=== PATIENT | female | born 1995 | race Caucasian/White ===

== ENCOUNTER 2023-08-17 17:44 | Emergency (ER) | payer BC, SELFPAY ==
[2023-08-17 17:49] VITALS: BP 113/80
[2023-08-17 18:11] LABS: % Basophils 0.1 % (0-2); % Eosinophils 0.6 % (0-6); % Immature Granulocytes 0.3 % (0-0.5); % Lymphocytes 5.6 % (20.5-51.1); % Monocytes 3.3 % (1.7-9.3); % Neutrophils 90.1 % (42.2-75.2); Absolute Eosinophils 0.1 10^3/uL (0-0.7); Absolute Lymphocytes 0.5 10^3/uL (1.2-3.4); Absolute Monocytes 0.3 10^3/uL (0.1-0.6); Absolute Neutrophils 8.4 10^3/uL (1.4-6.5); Hematocrit 40.9 % (37.0-47.0); Mean Corp Hgb Conc. 34.2 g/dL (33.0-37.0); Mean Corpuscular Hgb 28.8 pg (27.0-31.0); Mean Corpuscular Volume 84.2 fL (81.0-99.0); Nucleated Red Blood Cells % 0 %; Platelet Count 193 10^3/uL (130-400); Red Blood Cell Count 4.86 10^6/uL (4.20-5.40); Red Cell Dist. Width 13.3 % (11.5-14.5); White Blood Cell Count 9.3 10^3/uL (4.8-10.8)
[2023-08-17 18:24] LABS: ALT (SGPT) 21 U/L (0-35); AST (SGOT) 22 U/L (14-36); Albumin 4.5 g/dl (3.5-5.0); Alkaline Phosphatase 90 U/L (38-126); Blood Urea Nitrogen 10 mg/dl (7-17); Calcium 9.5 mg/dl (8.4-10.2); Carbon Dioxide 24 mmol/L (22-30); Chloride 103 mmol/L (98-107); Glucose 97 mg/dl (70-99); Potassium 4.1 mmol/L (3.5-5.1); Sodium 135 mmol/L (135-145); Total Bilirubin 0.9 mg/dl (0.2-1.3); Total Protein 7.4 g/dl (6.3-8.2); eGFR > 60.00
[2023-08-17 18:46] LABS: Lipase 98 U/L (23-300)
[2023-08-17] MEDS: NSS 1000 IV (19:17)
[2023-08-17] MEDS: ZOFRAN 4 MG IV (19:17)
[2023-08-17 20:18] LABS: Urine Albumin Trace (Neg - Trace); Urine Bilirubin 1+ (Negative); Urine Character Clear (Clear); Urine Color Yellow; Urine Glucose Negative (Negative); Urine Ketone 3+ (Negative); Urine Leukocyte Negative (Negative); Urine Nitrite Negative (Negative); Urine Occult Blood 2+ (Negative); Urine Urobilinogen 2+ (Neg - 1+)
[2023-08-17 20:34] LABS: Urine Bacteria Few (Negative); Urine Mucus Few; Urine Squamous Cell >30 /LPF (Few)
[2023-08-17 20:35] LABS: Urine Red Blood Cell 26-30 /HPF (0-2); Urine White Cell 0-2 /HPF (0-5)
--- NOTE | 2023-08-17 23:24 | ED.GENMED ---
History of Present Illness
General
Chief Complaint: Abdominal Symptoms
Source: patient
Exam Limitations: none
Time Seen by Provider: 08/17/23 18:21
Nursing documentation reviewed up to this point in time: agreed with
Travel History
Have you had any contact with someone who has COVID-19?: No
Do you have any symptoms of coronavirus? Fever > 100 degrees, chills, cough, shortness of breath, sore throat, loss of taste or smell, muscle aches, or headache?: No
History of Present Illness
History of Present Illness:
Patient to ED with complaint of vomiting since 6AM. Unable to keep anything down. Denies fever/chills. Reports abdominal bloating. State she was taking ozempic for weight control. She switched to Wegovy and had her first injection on Friday.
She is unsure if this is related.
Past History
Past History
ED Past Medical History: Asthma and Other (Environmental allergies)
ED Past Surgical History: Gynecological (Tubal ligation) and Other (Endoscopy, wisdom teeth extraction)
Social History
Tobacco: Non-smoker
Alcohol: None
Drug: None
Personal:
Living: with family
Employment: Employed
Family History
Family History: Other (Noncontributory)
Review of Systems
Review of Systems
Allergies reviewed?: Yes
All Other Systems: ROS reviewed and negative except as documented in HPI and ROS
Constitutional: Reports no symptoms
EENT: Reports no symptoms
Respiratory: Reports no symptoms
Cardiac: Reports no symptoms
ABD/GI: Reports abdominal pain, nausea, vomiting and diarrhea
: Reports no symptoms
Musculoskeletal: Reports no symptoms
Skin: Reports no symptoms
Neurological: Reports no symptoms
Hematologic/Lymphatic: Reports no symptoms
Psychiatric: Reports no symptoms
Phy Exam
General Physical Exam
General Presentation: well appearing and mild distress
General age: appears stated age
General Skin: warm and dry
General Habitus: normal
General Mental: alert
Pulmonary Exam
Pulmonary Exam: no respiratory distress and chest non tender
Gastrointestinal Exam
Gastrointestinal Exam: normal bowel sounds, soft, no organomegaly, non distended and no cva tenderness
Palpation: generalized: Mild tenderness
Musculoskeletal Exam
Musculoskeletal Exam: full ROM
Skin Exam
Skin Exam: normal color, warm/dry and no rash
Psychiatric Exam
Psychiatric Exam: normal mood/affect
Course
Orders/Labs/Results
Orders:
Orders
08/17/23 17:59
Complete Blood Count/With Diff Urgent
Comprehensive Metabolic Panel Urgent
Lipase Urgent
08/17/23 18:59
STOOL [C difficile Antigen & Toxins] Urgent
MARGAUX Source: Feces/Stool
Specimen Description:
Date Specimen was Collected: 08/17/23
Time Specimen was Collected: 19:15
0.9% Sodium Chloride 1000 ml [Nss] 1,000 ml IV BOLUS
Ondansetron Injectable [Zofran] 4 mg IV NOW STA
08/17/23 20:11
Urinalysis Reflex To Culture Urgent
Date Specimen was Collected: 08/17/23
Time Specimen was Collected: 17:53
Urine Microscopic Reflex Cult Urgent
Abnormal Lab Results
08/17/23 08/17/23
17:59 20:11
MPV 11.0 H fL
(7.4-10.4)
Absolute Neuts (auto) 8.4 H 10^3/uL
(1.4-6.5)
Absolute Lymphs (auto) 0.5 L 10^3/uL
(1.2-3.4)
Neutrophils % 90.1 H %
(42.2-75.2)
Lymphocytes % 5.6 L %
(20.5-51.1)
Urine Ketones 3+ A
(Negative)
Ur Occult Blood Reflex 2+ A
(Negative)
Urine Bilirubin 1+ A
(Negative)
Urine Urobilinogen 2+ A
(Neg - 1+)
Urine RBC 26-30 A /HPF
(0-2)
Urine Bacteria (Reflex) Few A
(Negative)
08/17/23 17:59
08/17/23 17:59
Vital Signs
Initial and Last Documented VS:
Initial Vital Signs
Temp Pulse Resp BP Pulse Ox
98.3 F 113 20 113/80 98
08/17/23 17:49 08/17/23 17:49 08/17/23 17:49 08/17/23 17:49 08/17/23 17:49
Last Documented Vital Signs
Temp Pulse Resp BP Pulse Ox
98.3 F 113 20 113/80 98
08/17/23 17:49 08/17/23 17:49 08/17/23 17:49 08/17/23 17:49 08/17/23 17:49
*Critical Care Note
Total Time (30-74mins, 75-104mins- exclusive of procedures): Not Applicable
Update Note
Update Note:
Improved with IVF and zofran. SHe would like to go home. Labs reviewed with her. She will be given rx for zofran prn. Recommend clear liquids for 24 hours advance as tolerated. Given instructions on s/s to return to ED and she is agreeable to
plan
ED Attending Note
-
Portions of this chart may have been created with voice recognition software.� Occasional wrong word or��sound alike� substitutions may have occurred due to the inherent limitations of voice recognition software.
Discharge Plan
Departure
Patient Disposition: Home (Routine Discharge)
Date of Disposition: 08/17/23
Time of Disposition: 21:08
Patient with high blood pressure during this ER visit?: No
Condition: Good
Covid-19: Not Applicable
Discharge Problem:
Vomiting and diarrhea
Instructions: Diarrhea in adolescents and adults, Clear Liquid Diet, Nausea and Vomiting, Adult (DC)
Prescriptions:
New
ondansetron 4 mg tablet,disintegrating
4 mg PO Q8H PRN (Reason: nausea and vomiting) 3 Days Qty: 10 0RF
No Action
ibuprofen 200 MG tablet
200 mg PO Q4HPRN Qty: 0 0RF
Rx Instructions:
1-2 200mg tabs every 4 hrs as needed. 3 200 mg tabs every -8 hrs as needed.
albuterol sulfate 2.5 MG/3 ML solution for nebulization
2.5 mg inhalation R Q4HPRN PRN (Reason: cough, shortness of breath) Qty: 30 0RF
Patient Comments:
Months ago per patient.
multivitamin 1 EACH tablet
1 tab PO DAILY
spironolactone [Aldactone] 100 MG tablet
100 mg PO DAILY
sertraline 100 MG tablet
100 mg PO DAILY
budesonide-formoterol [Symbicort] 1 PUFF HFA aerosol inhaler
1 puff inhalation DAILY
fexofenadine [Antonia] 60 MG tablet
280 mg PO DAILY
omeprazole [Prilosec] 10 MG capsule,delayed release(DR/EC)
20 mg PO DAILY
acetaminophen 325 MG tablet
650 mg PO Q4HPRN PRN (Reason: mild pain) 0RF
oxycodone 5 MG tablet
5 mg PO Q4HPRN PRN (Reason: moderate pain) Qty: 12 0RF
Referrals:
Anna Yoo MD [Family Provider] - Tomorrow
Activity Restrictions/Additional Instructions:
Return to the emergency department immediately for any changes in/worsening of your symptoms.
Interventions
Interventions:
*General Assessment Last Done: 08/17/23 17:49
*Neglect/Abuse Screening Last Done: 08/17/23 18:39
ED- Fall Risk Assessment Last Done: 08/17/23 18:39
*Nursing Disposition Last Done: 08/17/23 21:32
SY-Llfmtj-Zfeubbonwu Assessment Last Done: 08/17/23 18:39
Discharge Date and Time
Discharge Date/Time: 08/17/23 21:32
Print Language: IRISH
== END 2023-08-17 21:32 | disposition home or self-care (01) ==
LOC: EMR 17:44
PROVIDERS: EMERGENCY PHYSICIAN Emergency Medicine; FAMILY PHYSICIAN Internal Medicine
DX: R19.7 Diarrhea, unspecified (principal); R11.10 Vomiting, unspecified; R10.9 Unspecified abdominal pain; R14.0 Abdominal distension (gaseous); J45.909 Unspecified asthma, uncomplicated; Z88.1 Allergy status to other antibiotic agents; Z91.040 Latex allergy status; Z88.0 Allergy status to penicillin; Z91.018 Allergy to other foods
CPT/HCPCS: 99284; 96374; 96361; 80053; 81003; 81015; 83690; 85025

== ENCOUNTER 2023-09-14 02:17 | Emergency (ER) | payer BC, SELFPAY ==
[2023-09-14 02:19] VITALS: BP 118/76
--- NOTE | 2023-09-14 02:38 | EDRN ---
ear. Pt feels like she is swollen. Pt has had steroids and z pack and her L ear is worst. Pt can not sleep.
--- NOTE | 2023-09-14 02:50 | ED.GENMED ---
History of Present Illness
General
Chief Complaint: Throat Problem
Source: patient
Exam Limitations: none
Time Seen by Provider: 09/14/23 02:37
Nursing documentation reviewed up to this point in time: agreed with
Travel History
Have you had any contact with someone who has COVID-19?: No
Do you have any symptoms of coronavirus? Fever > 100 degrees, chills, cough, shortness of breath, sore throat, loss of taste or smell, muscle aches, or headache?: No
History of Present Illness
History of Present Illness:
This is a 27-year-old female who has history of mild intermittent asthma, history of seasonal allergies chronically maintained on Antonia and as needed steroid nasal spray. She complains of 1 week history of initially left posterior sore throat and
was evaluated at urgent care 1 week ago where she reports negative COVID, flu and rapid strep testing. She was diagnosed with left otitis media and placed on a Z-Preet as well as Medrol Dosepak, both of which completed yesterday.
She continues with moderate left ear pain that radiates to the left side of her throat, worse when laying down. She does admit to mild nasal congestion but has not had a headache, no fever nor chills, no rhinorrhea, no cough, no chest pain or
shortness of breath. She has had no drainage from her left ear.
Past History
Past History
ED Past Medical History: Asthma and Other (Environmental allergies)
ED Past Surgical History: Gynecological (Tubal ligation/Hysterectomy-bilateral salpingectomy (12/2020)) and Other (Endoscopy, wisdom teeth extraction)
Social History
Tobacco: Non-smoker
Alcohol: None
Drug: None
Personal:
Living: with family
Employment: Employed
Family History
Family History: Other (Noncontributory)
Phy Exam
Physical Exam
Physical Exam:
GENERAL: 27-year-old female appears her stated age, bright and alert, pleasant, appears in no acute distress. Afebrile. Normotensive.
EYE: anicteric
NECK: Supple, nontender, no meningismus, no significant adenopathy.
ENT: posterior pharynx is without injection nor edema nor exudate, there is scant pearly postnasal drip noted. Oral mucosa is moist. Left TM without injection nor redness but moderate serous fluid behind the TM. Canal is clear. Right TM and
canal is clear. Nares have moderately boggy pale blue turbinates without rhinorrhea. No sinus/facial tenderness to palpation.
CARDIAC: Regular rate and rhythm. no murmur.
LUNGS: Clear breath sounds bilaterally, no acute respiratory distress, no wheezes/rales/rhonchi
ABDOMEN: Soft, nondistended, without focal tenderness
NEUROLOGICAL: Alert and oriented x3, no focal neuro deficits. Gait is kumar and steady.
SKIN: Warm and dry, normal color, skin intact. No rash.
MUSCULOSKELETAL: No C/C/E. peripheral pulses are full and equal b/l. No palpable tenderness.
PSYCH: Normal and appropriate interaction.
Course
Orders/Labs/Results
Orders:
Orders
09/14/23 02:49
Ketorolac [Toradol] 60 mg IM NOW STA
Prednisone [Deltasone] 50 mg PO NOW STA
Vital Signs
Initial and Last Documented VS:
Initial Vital Signs
Pulse Resp BP Pulse Ox
90 18 118/76 98
09/14/23 02:19 09/14/23 02:19 09/14/23 02:19 09/14/23 02:19
Last Documented Vital Signs
Pulse Resp BP Pulse Ox
90 18 118/76 98
09/14/23 02:19 09/14/23 02:19 09/14/23 02:19 09/14/23 02:30
MDM/Problems Addressed
Differential Diagnosis Includes:
27-year-old female with history of asthma, seasonal allergies presents with 1 week history of left ear pain radiating to left posterior pharynx.
Thus far no improvement with a course of Z-Preet and Medrol Dosepak both of which completed yesterday.
Exam remarkable for serous otitis media on the left as well as moderate allergic rhinitis.
Review of records reveals an ED visit April 2020 with similar left serous otitis media and allergic rhinitis.
Patient denies history of frequent ear infections in fact she reports no recurrent ear pain since that episode 2020.
The TM is without injection, not bulging but there is moderate serous fluid behind the TM, I suspect resolving otitis media along with continued eustachian tube dysfunction on the left.
As Zithromax has a 96-hour half-life, course completion only yesterday, will hold off on additional antibiotics, but will continue oral steroids at higher dose, lengthier taper, and recommend she resume her daily steroid nasal spray as well as
continue daily Antonia.
Will give an IM dose of Toradol for pain.
Recommend follow-up with PCP for recheck this week.
Chronic conditions affecting care: Asthma and Other (Seasonal allergies)
*Pulse Oximetry
Patient hypoxic: no
*Critical Care Note
Total Time (30-74mins, 75-104mins- exclusive of procedures): Not Applicable
ED Attending Note
-
Portions of this chart may have been created with voice recognition software.� Occasional wrong word or��sound alike� substitutions may have occurred due to the inherent limitations of voice recognition software.
Discharge Plan
Departure
Patient Disposition: Home (Routine Discharge)
Date of Disposition: 09/14/23
Time of Disposition: 03:00
Patient with high blood pressure during this ER visit?: No
Condition: Good
Discharge Problem:
Acute serous otitis media of left ear, ETD (eustachian tube dysfunction)
Instructions: Serous Otitis Media (DC)
Prescriptions:
New
prednisone 10 mg Tablet
See Rx Instructions .ROUTE .COMPLEX Qty: 30 0RF
Rx Instructions:
Take By Mouth:
40 mg daily x3 days, 30 mg daily x3 days,
20 mg daily x3 days, 10 mg daily x3 days.
No Action
ibuprofen 200 MG tablet
200 mg PO Q4HPRN Qty: 0 0RF
Rx Instructions:
1-2 200mg tabs every 4 hrs as needed. 3 200 mg tabs every -8 hrs as needed.
albuterol sulfate 2.5 MG/3 ML solution for nebulization
2.5 mg inhalation R Q4HPRN PRN (Reason: cough, shortness of breath) Qty: 30 0RF
Patient Comments:
Months ago per patient.
multivitamin 1 EACH tablet
1 tab PO DAILY
spironolactone [Aldactone] 100 MG tablet
100 mg PO DAILY
sertraline 100 MG tablet
100 mg PO DAILY
budesonide-formoterol [Symbicort] 1 PUFF HFA aerosol inhaler
1 puff inhalation DAILY
fexofenadine [Antonia] 60 MG tablet
280 mg PO DAILY
omeprazole [Prilosec] 10 MG capsule,delayed release(DR/EC)
20 mg PO DAILY
acetaminophen 325 MG tablet
650 mg PO Q4HPRN PRN (Reason: mild pain) 0RF
oxycodone 5 MG tablet
5 mg PO Q4HPRN PRN (Reason: moderate pain) Qty: 12 0RF
ondansetron 4 mg tablet,disintegrating
4 mg PO Q8H PRN (Reason: nausea and vomiting) 3 Days Qty: 10 0RF
Referrals:
UNKNOWN - PT NOT,INTERVIEWE [Unknown Provider] -
Activity Restrictions/Additional Instructions:
Elevate head of bed with several extra pillows.
Continue daily Antonia and resume daily steroid nasal spray.
You have been prescribed a tapering dose of prednisone.
Follow-up with your family doctor this week for recheck.
Interventions
Interventions:
*Risk Screen - Suicide Last Done: 09/14/23 02:19
*General Assessment Last Done: 09/14/23 02:30
*Neglect/Abuse Screening Last Done: 09/14/23 02:19
ED- Fall Risk Assessment Last Done: 09/14/23 02:30
*ED COVID-19 Vaccine History Last Done: 09/14/23 02:30
ED-EENT Assessment Last Done: 09/14/23 02:30
ED- Pulmonary Assessment Last Done: 09/14/23 02:30
Discharge Date and Time
Print Language: DJIBOUTIAN
[2023-09-14] MEDS: DELTASONE 50 MG PO (03:07)
[2023-09-14] MEDS: TORADOL 60 MG IM (03:08)
== END 2023-09-14 03:17 | disposition home or self-care (01) ==
LOC: EMR 02:17
PROVIDERS: EMERGENCY PHYSICIAN Emergency Medicine; FAMILY PHYSICIAN Internal Medicine
DX: H65.02 Acute serous otitis media, left ear (principal); H69.92 Unspecified Eustachian tube disorder, left ear; R09.81 Nasal congestion; J02.9 Acute pharyngitis, unspecified; J45.20 Mild intermittent asthma, uncomplicated; Z88.0 Allergy status to penicillin; Z88.1 Allergy status to other antibiotic agents; Z91.040 Latex allergy status
CPT/HCPCS: 99284; 96372

== ENCOUNTER 2024-08-20 17:24 | Emergency (ER) | payer BC, SELFPAY ==
[2024-08-20 17:37] VITALS: BP 103/75
--- NOTE | 2024-08-20 21:09 | ED.GENMED ---
History of Present Illness
General
Chief Complaint: Eye Problems
Source: patient
Exam Limitations: none
Time Seen by Provider: 08/20/24 21:00
History of Present Illness
History of Present Illness:
28-year-old female presents for evaluation of pimples. She woke up this morning noticed that her pupils were really small. She spoke with her psychiatrist as she thought maybe some of her psychiatric medications were doing this. Her psychiatrist
referred her here. She denies headache. No vision change. She denies double vision or blurry vision. She did note some light sensitivity earlier. She denies any new medication changes. She does not use narcotics. No other complaints at this
time
Past History
Past History
ED Past Medical History: Asthma and Other (Environmental allergies)
ED Past Surgical History: Gynecological (Tubal ligation/Hysterectomy-bilateral salpingectomy (12/2020)) and Other (Endoscopy, wisdom teeth extraction)
Social History
Tobacco: Non-smoker
Alcohol: None
Drug: None
Personal:
Living: with family
Employment: Employed
Family History
Family History: Other (Noncontributory)
Phy Exam
Physical Exam
Physical Exam:
General: Well-appearing female no acute respiratory distress
HEENT: Normocephalic pupils measuring 4 mm bilaterally and reactive to light and to 2 mm bilaterally. They are equal round and reactive. They are symmetric. Extraocular motions are intact no nystagmus
Neurologic exam: Conversing appropriately. No facial asymmetry visual dutta intact
Course
Vital Signs
Initial and Last Documented VS:
Initial Vital Signs
Temp Pulse Resp BP Pulse Ox
98.4 F 84 16 103/75 99
08/20/24 17:37 08/20/24 17:37 08/20/24 17:37 08/20/24 17:37 08/20/24 17:37
Last Documented Vital Signs
Temp Pulse Resp BP Pulse Ox
98.4 F 84 16 103/75 99
08/20/24 17:37 08/20/24 17:37 08/20/24 17:37 08/20/24 17:37 08/20/24 17:37
MDM/Problems Addressed
Differential Diagnosis Includes:
Patient sent in by psychiatry secondary to pinpoint pupils. Pupils are not pinpoint on my exam. They are normal and reactive to light. Patient has no visual disturbance and no neurologic deficit. No indication for any further intervention at
this time stable for discharge
*Critical Care Note
Total Time (30-74mins, 75-104mins- exclusive of procedures): Not Applicable
ED Attending Note
-
Portions of this chart may have been created with voice recognition software.� Occasional wrong word or��sound alike� substitutions may have occurred due to the inherent limitations of voice recognition software.
Discharge Plan
Departure
Patient Disposition: Home (Routine Discharge)
Date of Disposition: 08/20/24
Time of Disposition: 21:11
Patient with high blood pressure during this ER visit?: No
Discharge Problem:
Pupil irregularity
Prescriptions:
No Action
ibuprofen 200 MG tablet
200 mg PO Q4HPRN Qty: 0 0RF
Rx Instructions:
1-2 200mg tabs every 4 hrs as needed. 3 200 mg tabs every -8 hrs as needed.
albuterol sulfate 2.5 MG/3 ML solution for nebulization
2.5 mg inhalation R Q4HPRN PRN (Reason: cough, shortness of breath) Qty: 30 0RF
Patient Comments:
Months ago per patient.
multivitamin 1 EACH tablet
1 tab PO DAILY
spironolactone [Aldactone] 100 MG tablet
100 mg PO DAILY
sertraline 100 MG tablet
100 mg PO DAILY
budesonide-formoterol [Symbicort] 1 PUFF HFA aerosol inhaler
1 puff inhalation DAILY
fexofenadine [Antonia] 60 MG tablet
280 mg PO DAILY
omeprazole [Prilosec] 10 MG capsule,delayed release(DR/EC)
20 mg PO DAILY
acetaminophen 325 MG tablet
650 mg PO Q4HPRN PRN (Reason: mild pain) 0RF
oxycodone 5 MG tablet
5 mg PO Q4HPRN PRN (Reason: moderate pain) Qty: 12 0RF
ondansetron 4 mg tablet,disintegrating
4 mg PO Q8H PRN (Reason: nausea and vomiting) 3 Days Qty: 10 0RF
prednisone 10 mg Tablet
See Rx Instructions .ROUTE .COMPLEX Qty: 30 0RF
Rx Instructions:
Take By Mouth:
40 mg daily x3 days, 30 mg daily x3 days,
20 mg daily x3 days, 10 mg daily x3 days.
Referrals:
Anna Yoo MD [Family Provider] -
Activity Restrictions/Additional Instructions:
As discussed, the pupils are regular in size. They are reactive to light. Return if needed
Interventions
Interventions:
*Risk Screen - Suicide Last Done: 08/20/24 17:37
*General Assessment Last Done: 08/20/24 21:02
*Neglect/Abuse Screening Last Done: 08/20/24 17:37
*Nursing Disposition Last Done: 08/20/24 21:07
Discharge Date and Time
Print Language: MAORI
== END 2024-08-20 21:20 | disposition home or self-care (01) ==
LOC: EMR 17:24
PROVIDERS: EMERGENCY PHYSICIAN Emergency Medicine; FAMILY PHYSICIAN Internal Medicine
DX: H21.563 Pupillary abnormality, bilateral (principal)
CPT/HCPCS: 99281; 99282